=== PATIENT | male | born 1985 | race Caucasian/White ===

== ENCOUNTER 2016-09-05 10:55 | Emergency (ER) | payer MEDICAID ==
[~2016-09-05] VITALS: Ht 162.6 cm; Wt 150.0 kg
[2016-09-05] MEDS ORDERED: LIDOCAINE HCL BUFFERED 1% 20 ML VIAL INJ ONE (13:00)
[2016-09-05] MEDS ORDERED: PERTUSS(ACELL),DIPH,TET VAC/PF 0.5 ML VIAL IM ONE (14:15)
[2016-09-05 14:35] VITALS: BP 138/77
== END 2016-09-05 14:50 | disposition home or self-care (01) ==
LOC: EMS 10:56
DX: L02.415 Cutaneous abscess of right lower limb (principal); I10 Essential (primary) hypertension; J45.909 Unspecified asthma, uncomplicated; F17.210 Nicotine dependence, cigarettes, uncomplicated
CPT/HCPCS: 10060; 90471; 90715; 99283; J3490

== ENCOUNTER 2016-10-05 08:13 | Inpatient (IN) | payer MEDICAID ==
[~2016-10-05] VITALS: Ht 162.6 cm; Wt 159.2 kg
[2016-10-05] MEDS ORDERED: QUET25TA PO (08:32)
[2016-10-05] MEDS ORDERED: RISP.5 PO (08:32)
[2016-10-05] MEDS ORDERED: ADDE10 PO (08:32)
[2016-10-05] MEDS ORDERED: ZOLPIDEM TARTRATE 10 MG TABLET PO PRN (09:45)
[2016-10-05] MEDS ORDERED: LORazepam 2 MG TABLET PO PRN (09:45)
[2016-10-05] MEDS ORDERED: HALOPERIDOL 5 MG TABLET PO PRN (09:45)
[2016-10-05 09:49] LABS: EOSINOPHILS % (AUTO) 0.7 % (1.0-6.0); HEMATOCRIT 37.1 % (41-53); HEMOGLOBIN 11.9 g/dL (13.5-17.5); LYMPHOCYTES # (AUTO) 1.9 K/uL (1.0-4.8); LYMPHOCYTES % (AUTO) 12.1 % (22.0-44.0); MEAN CORPUSCULAR HEMOGLOBIN 28.1 pg (26.0-34.0); MEAN CORPUSCULAR HGB CONC 32.1 G/dL (31.0-37.0); MEAN CORPUSCULAR VOLUME 88 fL (80-100); MONOCYTES # (AUTO) 0.7 K/uL (0.1-1.0); MONOCYTES % (AUTO) 4.7 % (2.0-9.0); NEUTROPHILS % (AUTO) 81.5 % (40.0-70.0); PLATELET COUNT (AUTO) 292 K/uL (150-450); RED BLOOD CELL COUNT(AUTO) 4.24 MIL/uL (4.50-5.90); RED CELL DISTRIBUTION WIDTH 12.9 % (11.5-14.5); WHITE BLOOD COUNT (AUTO) 15.9 K/uL (4.5-11.0)
[2016-10-05 10:00] LABS: ANION GAP 10 mmol/L (8-16); CALCIUM, TOTAL 8.5 mg/dL (8.8-10.5); CARBON DIOXIDE 27 mmol/L (22-29); CHLORIDE 102 mmol/L (98-107); CREATININE 0.96 mg/dL (0.60-1.30); GLOMERULAR FILTR. RATE CALC > 60 mL/min (>60); POTASSIUM 3.4 mmol/L (3.5-5.1); SODIUM SERUM 139 mmol/L (136-145); UREA NITROGEN, BLOOD 12 mg/dL (7-18)
[2016-10-05 10:05] LABS: ALANINE AMINOTRANSFERASE 47 U/L (12-78); ALBUMIN 3.5 g/dL (3.4-5.0); ASPARTATE AMINOTRANSFERASE 53 U/L (15-37); BILIRUBIN,TOTAL 0.7 mg/dL (0.1-1.0); TOTAL PROTEIN, SERUM 8.3 g/dL (6.4-8.2)
[2016-10-05] MEDS ORDERED: INFLUENZA VIRUS VACCINE QVS 2016-17 (3YR+)/PF 60 MCG/0.5 ML SYRINGE IM ONE (15:30)
[2016-10-05] MEDS ORDERED: PNEUMOCOCCAL VACCINE POLYVALENT 0.5 ML VIAL [PPSV23] IM ONE (15:30)
[2016-10-05 16:15] VITALS: BP 118/60
[2016-10-05 16:23] VITALS: BP 118/60
[2016-10-05] MEDS: OLANZapine 5 MG TABLET PO SCH (20:23)
[2016-10-05] MEDS ORDERED: POTASSIUM CHLORIDE 20 MEQ ER TABLET PO ONE (20:30)
[2016-10-05] MEDS ORDERED: ALBUTEROL SULFATE HFA 90 MCG/PUFF 8 GM INHALER IH PRN (20:30)
[2016-10-05 21:02] VITALS: BP 117/73
[2016-10-05 21:04] VITALS: BP 117/73
[2016-10-06 06:06] VITALS: BP 122/77
[2016-10-06 08:00] VITALS: BP 127/68
[2016-10-06 08:08] LABS: ANION GAP 7 mmol/L (8-16); CALCIUM, TOTAL 8.2 mg/dL (8.8-10.5); CARBON DIOXIDE 28 mmol/L (22-29); CHLORIDE 106 mmol/L (98-107); GLOMERULAR FILTR. RATE CALC > 60 mL/min (>60); POTASSIUM 3.5 mmol/L (3.5-5.1); SODIUM SERUM 141 mmol/L (136-145); UREA NITROGEN, BLOOD 12 mg/dL (7-18)
[2016-10-06 08:09] LABS: BASOPHILS # (AUTO) 0.03 K/uL (0.00-0.20); BASOPHILS % (AUTO) 0.4 % (0.0-2.0); EOSINOPHILS # (AUTO) 0.43 K/uL (0.00-0.70); EOSINOPHILS % (AUTO) 4.94 % (1.0-6.0); HEMATOCRIT 35.2 % (41-53); HEMOGLOBIN 11.9 g/dL (13.5-17.5); LYMPHOCYTES # (AUTO) 2.1 K/uL (1.0-4.8); LYMPHOCYTES % (AUTO) 24.7 % (22.0-44.0); MEAN CORPUSCULAR HEMOGLOBIN 29.4 pg (26.0-34.0); MEAN CORPUSCULAR HGB CONC 33.9 G/dL (31.0-37.0); MEAN CORPUSCULAR VOLUME 87 fL (80-100); MONOCYTES # (AUTO) 0.5 K/uL (0.1-1.0); MONOCYTES % (AUTO) 5.5 % (2.0-9.0); NEUTROPHILS # (AUTO) 5.6 K/uL (1.8-7.7); NEUTROPHILS % (AUTO) 64.5 % (40.0-70.0); PLATELET COUNT (AUTO) 250 K/uL (150-450); RED BLOOD CELL COUNT(AUTO) 4.07 MIL/uL (4.50-5.90); RED CELL DISTRIBUTION WIDTH 13.1 % (11.5-14.5); WHITE BLOOD COUNT (AUTO) 8.6 K/uL (4.5-11.0)
[2016-10-06] MEDS: FLUoxetine HCL 20 MG CAPSULE PO SCH (09:24)
[2016-10-06 16:04] VITALS: BP 101/63
[2016-10-06 17:05] VITALS: BP 128/70
[2016-10-06] MEDS: OLANZapine 5 MG TABLET PO SCH (20:24)
[2016-10-07 06:02] VITALS: BP 125/87
[2016-10-07 08:18] VITALS: BP 115/61
[2016-10-07] MEDS ORDERED: OLAN5TAB2 PO (09:22)
[2016-10-07] MEDS ORDERED: FLUO-191 PO (09:22)
[2016-10-07] MEDS: FLUoxetine HCL 20 MG CAPSULE PO SCH (10:29)
== END 2016-10-07 15:05 | disposition home or self-care (01) | DRG 885 ==
LOC: EEVIPCON 08:15 → EMS 08:15 → B2S 12:32
PROVIDERS: ADMIT Psychiatry & Neurology Psychiatry; ATTEND Psychiatry & Neurology Psychiatry
PROC: 3E0234Z Introduction of Serum, Toxoid and Vaccine into Muscle, Percutaneous Approach (ICD-10-PCS; principal; 2016-10-06)
DX: F25.0 Schizoaffective disorder, bipolar type (principal); R45.851 Suicidal ideations; F15.20 Other stimulant dependence, uncomplicated; F60.3 Borderline personality disorder; F90.9 Attention-deficit hyperactivity disorder, unspecified type; J45.909 Unspecified asthma, uncomplicated; Z91.5 Personal history of self-harm; F17.210 Nicotine dependence, cigarettes, uncomplicated; Z91.14 Patient's other noncompliance with medication regimen; Z59.0 Homelessness; Z90.49 Acquired absence of other specified parts of digestive tract; Z28.21 Immunization not carried out because of patient refusal; Z23 Encounter for immunization; Z79.899 Other long term (current) drug therapy
CPT/HCPCS: 90471; 99285; G0480

== ENCOUNTER 2017-10-28 21:12 | Emergency (ER) | payer MEDICAID, OTHER ==
[~2017-10-28] VITALS: Ht 162.6 cm; Wt 188.6 kg
[~2017-10-28 21:12] MED LIST: FLUO-191 PO; OLAN5TAB2 PO
[2017-10-28] MEDS ORDERED: SODIUM CHLORIDE 0.9% 1,000 ML IV ONE (22:19)
[2017-10-28] MEDS ORDERED: ONDANSETRON HCL 4 MG/2 ML VIAL IVP ONE (22:30)
[2017-10-28 22:55] LABS: BASOPHILS % (AUTO) 0.7 % (0.0-2.0); EOSINOPHILS % (AUTO) 1.9 % (1.0-6.0); HEMATOCRIT 36.2 % (41-53); HEMOGLOBIN 12.3 g/dL (13.5-17.5); LYMPHOCYTES # (AUTO) 2.4 K/uL (1.0-4.8); LYMPHOCYTES % (AUTO) 17.4 % (22.0-44.0); MEAN CORPUSCULAR HEMOGLOBIN 27.9 pg (26.0-34.0); MEAN CORPUSCULAR VOLUME 82 fL (80-100); MONOCYTES # (AUTO) 0.6 K/uL (0.1-1.0); MONOCYTES % (AUTO) 4.1 % (2.0-9.0); NEUTROPHILS # (AUTO) 10.3 K/uL (1.8-7.7); NEUTROPHILS % (AUTO) 75.9 % (40.0-70.0); PLATELET COUNT (AUTO) 301 K/uL (150-450); RED BLOOD CELL COUNT(AUTO) 4.42 MIL/uL (4.50-5.90); RED CELL DISTRIBUTION WIDTH 15.1 % (11.5-14.5)
[2017-10-28 23:05] LABS: ANION GAP 9 mmol/L (8-16); CALCIUM, TOTAL 8.6 mg/dL (8.8-10.5); CARBON DIOXIDE 26 mmol/L (22-29); CHLORIDE 101 mmol/L (98-107); CREATININE 0.95 mg/dL (0.60-1.30); GLOMERULAR FILTR. RATE CALC > 60 mL/min (>60); GLUCOSE,RANDOM 113 mg/dL (70-110); POTASSIUM 3.1 mmol/L (3.5-5.1); SODIUM SERUM 136 mmol/L (136-145); UREA NITROGEN, BLOOD 9 mg/dL (7-18)
[2017-10-28 23:11] LABS: ALANINE AMINOTRANSFERASE 66 U/L (12-78); ALBUMIN 3.4 g/dL (3.4-5.0); ALKALINE PHOSPHATASE 75 U/L (46-116); ASPARTATE AMINOTRANSFERASE 69 U/L (15-37); BILIRUBIN,TOTAL 0.6 mg/dL (0.1-1.0); LIPASE 138 U/L (73-393); TOTAL PROTEIN, SERUM 8.4 g/dL (6.4-8.2)
[2017-10-29] MEDS ORDERED: POTASSIUM CHLORIDE 20 MEQ ER TABLET PO ONE (00:30)
[2017-10-29 01:00] VITALS: BP 132/81
== END 2017-10-29 01:48 | disposition home or self-care (01) ==
LOC: EMS 21:12
DX: E87.6 Hypokalemia (principal); R11.2 Nausea with vomiting, unspecified; J45.909 Unspecified asthma, uncomplicated; F17.210 Nicotine dependence, cigarettes, uncomplicated
CPT/HCPCS: 36415; 80053; 83690; 84484; 85025; 93005; 96361; 96374; 99285; J2405; J7030

== ENCOUNTER 2022-07-16 14:15 | Inpatient (IN) | payer OTHER ==
[~2022-07-16] VITALS: Ht 162.6 cm; Wt 188.6 kg
[~2022-07-16 14:15] MED LIST changes: +FLUO-177 PO; -FLUO-191 PO; -OLAN5TAB2 PO; +OLAN5TAB52 PO
[2022-07-16] MEDS ORDERED: IPRATROPIUM BROMIDE 0.5 MG/2.5 ML NEB SOLUTION NEB ONE (15:30)
[2022-07-16] MEDS ORDERED: ALBUTEROL SULFATE 2.5 MG/0.5 ML NEB SOLUTION NEB ONE (15:30)
[2022-07-16 15:46] LABS: COVID AG,FIA SOURCE NASAL SWAB
[2022-07-16 16:22] LABS: INFLUENZA TYPE B NEGATIVE FOR TYPE B (NEGATIVE)
[2022-07-16 16:25] LABS: INFLUENZA TYPE A POSITIVE FOR TYPE A (NEGATIVE)
[2022-07-16] MEDS ORDERED: OSELTAMIVIR PHOSPHATE 75 MG CAPSULE PO ONE (16:45)
[2022-07-16] MEDS ORDERED: MethylPREDNISolone SOD SUCC 125 MG/2 ML VIAL IVP ONE (17:00)
[2022-07-16 17:12] LABS: BASOPHILS % (AUTO) 1.1 % (0.0-2.0); EOSINOPHILS % (AUTO) 5.4 % (1.0-6.0); HEMATOCRIT 39.4 % (41-53); HEMOGLOBIN 12.8 g/dL (13.5-17.5); LYMPHOCYTES # (AUTO) 1.2 K/uL (1.0-4.8); LYMPHOCYTES % (AUTO) 17.8 % (22.0-44.0); MEAN CORPUSCULAR HEMOGLOBIN 28.2 pg (26.0-34.0); MEAN CORPUSCULAR HGB CONC 32.6 G/dL (31.0-37.0); MEAN CORPUSCULAR VOLUME 87 fL (80-100); MONOCYTES # (AUTO) 0.7 K/uL (0.1-1.0); MONOCYTES % (AUTO) 9.9 % (2.0-9.0); NEUTROPHILS # (AUTO) 4.3 K/uL (1.8-7.7); NEUTROPHILS % (AUTO) 65.8 % (40.0-70.0); PLATELET COUNT (AUTO) 245 K/uL (150-450); RED BLOOD CELL COUNT(AUTO) 4.56 MIL/uL (4.50-5.90); RED CELL DISTRIBUTION WIDTH 14.7 % (11.5-14.5)
[2022-07-16] MEDS ORDERED: 0.9% SODIUM CHLORIDE 10 ML SYRINGE IVP PRN (17:15)
[2022-07-16] MEDS ORDERED: ALBUTEROL SULFATE 2.5 MG/0.5 ML NEB SOLUTION NEB PRN ×2 (17:15→21:45)
[2022-07-16] MEDS ORDERED: ACETAMINOPHEN 325 MG TABLET PO PRN ×2 (17:15→21:45)
[2022-07-16] MEDS ORDERED: ONDANSETRON HCL 4 MG/2 ML VIAL IVP PRN ×2 (17:15→21:45)
[2022-07-16] MEDS ORDERED: IPRATROPIUM BROMIDE 0.5 MG/2.5 ML NEB SOLUTION NEB PRN ×2 (17:15→21:45)
[2022-07-16 17:21] LABS: ANION GAP 2 mmol/L (8-16); CALCIUM, TOTAL 8.9 mg/dL (8.8-10.5); CARBON DIOXIDE 32 mmol/L (22-29); CHLORIDE 99 mmol/L (98-107); GLOMERULAR FILTR. RATE CALC > 60 mL/min (>60); GLUCOSE,RANDOM 129 mg/dL (70-110); POTASSIUM 3.6 mmol/L (3.5-5.1); SODIUM SERUM 133 mmol/L (136-145); UREA NITROGEN, BLOOD 6 mg/dL (7-18)
[2022-07-16 17:27] LABS: ALANINE AMINOTRANSFERASE 57 U/L (12-78); ALBUMIN 3.2 g/dL (3.4-5.0); ALKALINE PHOSPHATASE 77 U/L (46-116); ASPARTATE AMINOTRANSFERASE 43 U/L (15-37); BILIRUBIN,TOTAL 0.4 mg/dL (0.1-1.0); TOTAL PROTEIN, SERUM 8.1 g/dL (6.4-8.2)
[2022-07-16] MEDS ORDERED: ACETAMINOPHEN 500 MG TABLET PO ONE (17:30)
[2022-07-16] MEDS: IPRATROPIUM BROMIDE 0.5 MG/2.5 ML NEB SOLUTION NEB SCH ×2 (20:53→23:44)
[2022-07-16] MEDS: ALBUTEROL SULFATE 2.5 MG/0.5 ML NEB SOLUTION NEB SCH ×2 (20:53→23:44)
[2022-07-16] MEDS ORDERED: BISACODYL 10 MG RECTAL RECTAL SUPPOSITORY PR PRN (21:45)
[2022-07-16] MEDS ORDERED: ZOLPIDEM TARTRATE 5 MG TABLET PO PRN (21:45)
[2022-07-16] MEDS ORDERED: MAGNESIUM HYDROXIDE SUSPENSION 30 ML UDCUP PO PRN (21:45)
[2022-07-16] MEDS ORDERED: MORPHINE SULFATE 2 MG/ML SYRINGE IVP PRN (21:45)
[2022-07-16] MEDS ORDERED: HYDROCODONE/ACETAMINOPHEN 5-325 MG TABLET PO PRN (21:45)
[2022-07-17] VITALS: BP 124/52
[2022-07-17] MEDS: HEPARIN SODIUM,PORCINE 5,000 UNITS/ML VIAL SQ SCH ×2 (00:19→09:50)
[2022-07-17] MEDS: MethylPREDNISolone SOD SUCC 125 MG/2 ML VIAL IVP SCH ×2 (00:19→05:36)
[2022-07-17] MEDS: IPRATROPIUM BROMIDE 0.5 MG/2.5 ML NEB SOLUTION NEB SCH ×4 (03:00→14:00)
[2022-07-17] MEDS: ALBUTEROL SULFATE 2.5 MG/0.5 ML NEB SOLUTION NEB SCH ×4 (03:00→14:00)
[2022-07-17 04:51] VITALS: BP 119/56
[2022-07-17 08:37] VITALS: BP 136/71
[2022-07-17] MEDS ORDERED: GuaiFENesin SR 600 MG ER TABLET PO SCH (09:00)
[2022-07-17] MEDS ORDERED: BENZONATATE 100 MG CAPSULE PO SCH (09:00)
[2022-07-17] MEDS ORDERED: FLUoxetine HCL 20 MG CAPSULE PO SCH (09:00)
[2022-07-17] MEDS ORDERED: OSELTAMIVIR PHOSPHATE 75 MG CAPSULE PO SCH (09:00)
[2022-07-17] MEDS ORDERED: DOCUSATE SODIUM 100 MG CAPSULE PO SCH (09:00)
[2022-07-17] MEDS ORDERED: PANTOPRAZOLE SODIUM 40 MG DR TABLET PO SCH (09:00)
[2022-07-17 11:54] VITALS: BP 140/89
[2022-07-17] MEDS ORDERED: OLANZapine 5 MG TABLET PO SCH (21:00)
== END 2022-07-17 11:54 | disposition left against medical advice (07) | DRG 141 ==
LOC: EMS 14:36 → 5S 21:38
PROVIDERS: ADMIT Internal Medicine; ATTEND Internal Medicine
DX: J45.901 Unspecified asthma with (acute) exacerbation (principal); J96.01 Acute respiratory failure with hypoxia; J10.00 Influenza due to other identified influenza virus with unspecified type of pneumonia; R73.9 Hyperglycemia, unspecified; D64.9 Anemia, unspecified; E66.01 Morbid (severe) obesity due to excess calories; Z68.45 Body mass index [BMI] 70 or greater, adult; F17.200 Nicotine dependence, unspecified, uncomplicated; F31.9 Bipolar disorder, unspecified; Z20.822 Contact with and (suspected) exposure to COVID-19; F90.9 Attention-deficit hyperactivity disorder, unspecified type; Z79.899 Other long term (current) drug therapy
CPT/HCPCS: 71045; 80053; 85025; 87804; 93005; 94060; 94640; 99291; G0378; J1644; J2930; 36415-L1; 36415-TC; J7613

== ENCOUNTER 2023-02-13 16:05 | Inpatient (IN) | payer MEDICAID, OTHER ==
[~2023-02-13] VITALS: Ht 162.6 cm; Wt 157.4 kg
[2023-02-13] MEDS ORDERED: LORazepam 2 MG TABLET PO ONE (21:15)
[2023-02-13 21:28] LABS: GLUCOMETER DEV NAME(LOC) ER.6
[2023-02-13 21:59] LABS: COVID AG,FIA SOURCE NASOPHARYNGEAL
[2023-02-13 22:00] LABS: BASOPHILS % (AUTO) 0.8 % (0.0-2.0); EOSINOPHILS % (AUTO) 1.4 % (1.0-6.0); HEMATOCRIT 40.4 % (41-53); HEMOGLOBIN 13.1 g/dL (13.5-17.5); LYMPHOCYTES # (AUTO) 3.4 K/uL (1.0-4.8); LYMPHOCYTES % (AUTO) 32.6 % (22.0-44.0); MEAN CORPUSCULAR HEMOGLOBIN 28.2 pg (26.0-34.0); MEAN CORPUSCULAR HGB CONC 32.6 G/dL (31.0-37.0); MEAN CORPUSCULAR VOLUME 87 fL (80-100); MONOCYTES # (AUTO) 0.6 K/uL (0.1-1.0); MONOCYTES % (AUTO) 5.6 % (2.0-9.0); NEUTROPHILS # (AUTO) 6.1 K/uL (1.8-7.7); NEUTROPHILS % (AUTO) 59.6 % (40.0-70.0); PLATELET COUNT (AUTO) 247 K/uL (150-450); RED BLOOD CELL COUNT(AUTO) 4.67 MIL/uL (4.50-5.90)
[2023-02-13] MEDS ORDERED: HALOPERIDOL 5 MG TABLET PO PRN (22:00)
[2023-02-13] MEDS ORDERED: ZOLPIDEM TARTRATE 10 MG TABLET PO PRN (22:00)
[2023-02-13 22:10] LABS: ANION GAP 10 mmol/L (8-16); CALCIUM, TOTAL 9.1 mg/dL (8.8-10.5); CARBON DIOXIDE 26 mmol/L (22-29); CHLORIDE 101 mmol/L (98-107); CREATININE 0.79 mg/dL (0.60-1.30); GLOMERULAR FILTR. RATE CALC > 60 mL/min (>60); GLUCOSE,RANDOM 99 mg/dL (70-110); POTASSIUM 3.3 mmol/L (3.5-5.1); SODIUM SERUM 137 mmol/L (136-145)
[2023-02-13 22:16] LABS: ALANINE AMINOTRANSFERASE 55 U/L (12-78); ALBUMIN 3.3 g/dL (3.4-5.0); ALKALINE PHOSPHATASE 70 U/L (46-116); ASPARTATE AMINOTRANSFERASE 36 U/L (15-37); BILIRUBIN,TOTAL 0.8 mg/dL (0.1-1.0); TOTAL PROTEIN, SERUM 8.2 g/dL (6.4-8.2)
[2023-02-13] MEDS ORDERED: POTASSIUM CHLORIDE 20 MEQ ER TABLET PO ONE (23:45)
[2023-02-14] MEDS: LORazepam 2 MG TABLET PO PRN (02:39)
[2023-02-14 05:12] VITALS: BP 132/58; PULSE 92; RESP 18; TEMP 97
[2023-02-14 05:34] VITALS: BP 134/58; PULSE 92; RESP 18; TEMP 97; O2SAT 98
[2023-02-14 08:20] VITALS: BP 103/61; PULSE 60; RESP 16; TEMP 97.4; O2SAT 94
[2023-02-14] MEDS: OLANZapine 5 MG TABLET PO SCH ×2 (12:03→20:39)
[2023-02-14] MEDS: FLUoxetine HCL 20 MG CAPSULE PO SCH (12:03)
[2023-02-14] MEDS ORDERED: CloNIDine HCL 0.1 MG TABLET PO PRN (15:30)
[2023-02-14] MEDS ORDERED: GuaiFENesin/D-METHORPHAN [SUGAR-FREE] 200-20MG/10 ML SYRUP UDCUP PO PRN (15:30)
[2023-02-14] MEDS ORDERED: ACETAMINOPHEN 325 MG TABLET PO PRN (15:30)
[2023-02-14] MEDS ORDERED: ONDANSETRON HCL 4 MG TABLET PO PRN (15:30)
[2023-02-14] MEDS ORDERED: ALBUTEROL SULFATE HFA 90 MCG/PUFF 8 GM INHALER IH PRN (15:30)
[2023-02-14] MEDS ORDERED: MAGNESIUM HYDROXIDE SUSPENSION 30 ML UDCUP PO PRN (15:30)
[2023-02-14] MEDS ORDERED: PETROLATUM,WHITE 28 GM JELLY TP PRN (15:30)
[2023-02-14] MEDS ORDERED: DOCUSATE SODIUM 100 MG CAPSULE PO PRN (15:30)
[2023-02-14] MEDS ORDERED: IBUPROFEN 400 MG TABLET PO PRN (15:30)
[2023-02-14] MEDS ORDERED: LOPERAMIDE HCL 2 MG CAPSULE PO PRN (15:30)
[2023-02-14] MEDS ORDERED: NICOTINE 14 MG/24 HOUR PATCH TD PRN (15:30)
[2023-02-14] MEDS ORDERED: MAG HYDROX/AL HYDROX/SIMETH ES 30 ML SUSPENSION UDCUP PO PRN (15:30)
[2023-02-14 21:00] VITALS: BP 126/80; PULSE 90; RESP 17; TEMP 98; O2SAT 97
[2023-02-15 08:16] VITALS: BP 102/60; PULSE 89; RESP 16; TEMP 98.3; O2SAT 98
[2023-02-15] MEDS: FLUoxetine HCL 20 MG CAPSULE PO SCH (08:31)
[2023-02-15] MEDS: OLANZapine 5 MG TABLET PO SCH ×3 (08:31→20:58)
[2023-02-15] MEDS: LORazepam 2 MG TABLET PO PRN (18:36)
[2023-02-15 22:03] VITALS: BP 122/67; PULSE 86; RESP 16; TEMP 97.4; O2SAT 99
[2023-02-16 08:17] LABS: HEMOGLOBIN A1C 6.1 % (3.8-5.6)
[2023-02-16 08:22] VITALS: BP 155/74; PULSE 83; RESP 17; TEMP 97.6; O2SAT 97
[2023-02-16 08:22] LABS: CHOL/HDL RATIO 5.2 (4.2-7.3); POTASSIUM 3.8 mmol/L (3.5-5.1)
[2023-02-16] MEDS: OLANZapine 5 MG TABLET PO SCH ×2 (08:44→20:21)
[2023-02-16] MEDS: FLUoxetine HCL 20 MG CAPSULE PO SCH (08:44)
[2023-02-16 12:36] LABS: GLUCOMETER DEV NAME(LOC) BV2S.
[2023-02-16] MEDS ORDERED: TraMADol HCL 50 MG TABLET PO PRN (15:45)
[2023-02-16 18:11] LABS: GLUCOMETER DEV NAME(LOC) BV2S.
[2023-02-16 20:21] VITALS: BP 146/72; PULSE 86; RESP 18; TEMP 97.8; O2SAT 97
[2023-02-17 06:41] LABS: GLUCOMETER DEV NAME(LOC) BV2S.
[2023-02-17] MEDS: OLANZapine 5 MG TABLET PO SCH ×2 (08:16→20:22)
[2023-02-17] MEDS: FLUoxetine HCL 20 MG CAPSULE PO SCH (08:17)
[2023-02-17 10:31] VITALS: BP 160/95; PULSE 100; RESP 20; TEMP 97.7; O2SAT 94
[2023-02-17 10:33] VITALS: RESP 18
[2023-02-17 11:33] VITALS: RESP 17
[2023-02-17 16:40] LABS: GLUCOMETER DEV NAME(LOC) BV2S.
[2023-02-17 21:38] VITALS: BP 137/79; PULSE 91; RESP 18; TEMP 97.5; O2SAT 98
[2023-02-18 06:21] LABS: GLUCOMETER DEV NAME(LOC) BV2S.
[2023-02-18 09:10] VITALS: BP 127/72; PULSE 74; RESP 18; TEMP 97.9; O2SAT 95
[2023-02-18] MEDS: FLUoxetine HCL 20 MG CAPSULE PO SCH (09:27)
[2023-02-18] MEDS: OLANZapine 5 MG TABLET PO SCH ×2 (09:28→20:50)
[2023-02-18 19:41] LABS: GLUCOMETER DEV NAME(LOC) BV2S.
[2023-02-18 22:34] VITALS: BP 122/75; PULSE 79; RESP 18; TEMP 97.6; O2SAT 97
[2023-02-19 07:51] LABS: GLUCOMETER DEV NAME(LOC) BV2S.
[2023-02-19 09:41] VITALS: BP 143/78; PULSE 93; RESP 16; TEMP 98.1; O2SAT 95
[2023-02-19] MEDS: FLUoxetine HCL 20 MG CAPSULE PO SCH (09:43)
[2023-02-19] MEDS: OLANZapine 5 MG TABLET PO SCH (09:44)
[2023-02-19] MEDS ORDERED: OLAN5TAB52 PO ×3 (15:20→19:45)
[2023-02-19 16:51] LABS: GLUCOMETER DEV NAME(LOC) BV2S.
[2023-02-19] MEDS ORDERED: FLUO20CA36 PO (19:45)
== END 2023-02-19 17:23 | disposition home or self-care (01) | DRG 750 ==
LOC: EMS 16:06 → B2S 23:00
PROVIDERS: ADMIT Psychiatry & Neurology Child & Adolescent Psychiatry; ATTEND Psychiatry & Neurology Child & Adolescent Psychiatry
DX: F25.1 Schizoaffective disorder, depressive type (principal); R45.851 Suicidal ideations; D64.9 Anemia, unspecified; E73.9 Lactose intolerance, unspecified; E87.6 Hypokalemia; Z20.822 Contact with and (suspected) exposure to COVID-19; G47.00 Insomnia, unspecified; F90.9 Attention-deficit hyperactivity disorder, unspecified type; Z79.899 Other long term (current) drug therapy
CPT/HCPCS: 80053; 80061; 82962; 83036; 84132; 85025; 99285; G0480